=== PATIENT | male | born 1960 ===

== ENCOUNTER 2018-12-30 23:53 | Observation (INO) | payer BC ==
--- NOTE | 2018-12-31 00:51 | ED PDOC ---
HPI: Chest Pain Time Seen by Provider: 12/31/18 00:09 Chief Complaint (Nursing): Chest Pain Chief Complaint (Provider): Chest Pain History Per: Patient History/Exam Limitations: no limitations Onset/Duration Of Symptoms: Hrs (x 1 hour waiter/waitress captain) Current Symptoms Are (Timing): Still Present Quality: "Pain", Other (discomfort) Associated Symptoms: Diaphoresis Additional Complaint(s): 58 year old male with no significant medical history presents to the ED for evaluation of chest discomfort that began 1 hour prior to arrival associated with diaphoresis and left upper back pain. Patient reports he was watching television when the discomfort began, lasting a few seconds before resolving and then returning again. He has never experienced this discomfort before. Currently, he denies complaints of chest pain and is just reporting a headache. Patient offers no other complaints. PMD: none provided Past Medical History Reviewed: Historical Data, Nursing Documentation, Vital Signs Vital Signs: Last Vital Signs Temp 98.8 F 12/31/18 00:07 Pulse 40 L 12/31/18 00:07 Resp 19 12/31/18 00:07 BP 160/85 H 12/31/18 00:07 Pulse Ox 97 12/31/18 00:07 - Medical History PMH: No Chronic Diseases - Surgical History Surgical History: No Surg Hx - Family History Family History: States: No Known Family Hx - Social History Current smoker - smoking cessation education provided: No Alcohol: Occasional Drugs: Denies - Home Medications Home Medications: Ambulatory Orders Medication Instructions Recorded No Known Home Med 12/31/18 - Allergies Allergies/Adverse Reactions: Allergies Allergy/AdvReac Type Severity Reaction Status Date / Time No Known Allergies Allergy Verified 12/31/18 00:09 Review of Systems ROS Statement: Except As Marked, All Systems Reviewed And Found Negative Constitutional: Positive for: Sweats Cardiovascular: Positive for: Chest Pain Musculoskeletal: Positive for: Back Pain Physical Exam - Reviewed Nursing Documentation Reviewed: Yes Vital Signs Reviewed: Yes - Physical Exam Appears: Positive for: Non-toxic, No Acute Distress Head Exam: Positive for: ATRAUMATIC, NORMAL INSPECTION, NORMOCEPHALIC Skin: Positive for: Normal Color, Warm, Dry Eye Exam: Positive for: EOMI, Normal appearance, PERRL Neck: Positive for: Normal, Painless ROM, Supple Cardiovascular/Chest: Positive for: Regular Rate, Rhythm. Negative for: Murmur Respiratory: Positive for: Normal Breath Sounds. Negative for: Wheezing, Respiratory Distress Gastrointestinal/Abdominal: Positive for: Normal Exam, Soft. Negative for: Tenderness Back: Positive for: Normal Inspection. Negative for: L CVA Tenderness, R CVA Tenderness Extremity: Positive for: Normal ROM (x 4). Negative for: Deformity Neurological/Psych: Positive for: Awake, Alert, Normal Tone, Oriented (x 3). Negative for: Motor/Sensory Deficits - Laboratory Results Result Diagrams: 12/31/18 00:52 12/31/18 00:52 - ECG ECG: Positive for: Interpreted By Me, Viewed By Me ECG Rhythm: Positive for: Sinus Rhythm Rate: 43 O2 Sat by Pulse Oximetry: 97 (RA) Pulse Ox Interpretation: Normal Medical Decision Making Medical Decision Makin:25 Impression: chest discomfort Initial Plan: --CBC --CMP --Chest x-ray --Troponin 02:34 Patient will be admitted to Dr. Tejeda (aw[facility]E) in obs/tele for further evaluation of chest pain. 162 mg of aspirin given as a precaution. Patient with stable vitals at this time. pt will need cardiac monitoring to rule out CAD, to rule out malignant arrythmia. also placed consult for caridology pancake professional as per dr tejeda request Scribe Attestation: Documented by Padmini Adam, acting as a scribe for Wing Fairchild MD Provider Scribe Attestation: All medical record entries made by the Scribe were at my direction and personally dictated by me. I have reviewed the chart and agree that the record accurately reflects my personal performance of the history, physical exam, medical decision making, and the department course for this patient. I have also personally directed, reviewed, and agree with the discharge instructions and disposition Disposition - Clinical Impression Clinical Impression: Chest pain - Patient ED Disposition Is Patient to be Admitted: Yes Counseled Patient/Family Regarding: Studies Performed, Diagnosis - Disposition Disposition Time: 02:35 Condition: FAIR - Pt Status Changed To: Hospital Disposition Of: Observation
[2018-12-31 01:10] LABS: BASO # 0.1 K/uL (0.0-0.2); BASO % 0.8 % (0.0-2.0); EOS # 0.3 K/uL (0.0-0.7); EOS % 2.4 % (0.0-4.0); LYMPH # 1.2 K/uL (1.0-4.3); LYMPH % 10.5 % (20.0-40.0); MEAN CELL VOLUME 93.2 fl (80.0-94.0); MEAN CORPUSCULAR HEMOGLOBIN 31.2 pg (27.0-31.0); MEAN CORPUSCULAR HGB CONC 33.5 g/dL (33.0-37.0); MEAN PLATELET VOLUME 7.8 fl (7.2-11.7); MONO # 0.4 K/uL (0.0-0.8); MONO % 3.6 % (0.0-10.0); NEUT # 9.4 K/uL (1.8-7.0); NEUT % 82.7 % (50.0-75.0); NRBC % 0.1 % (0.0-0.0); RBC 5.13 Mil/uL (4.40-5.90); RED CELL DISTRIBUTION WIDTH 14.4 % (11.5-14.5); WHITE BLOOD COUNT 11.4 K/uL (4.8-10.8)
[2018-12-31 01:20] LABS: ALB/GLOB RATIO 1.2 (1.0-2.1); ALBUMIN 3.9 g/dL (3.5-5.0); ALT/SGPT 38 U/L (21-72); AST/SGOT 29 U/L (17-59); BLOOD UREA NITROGEN 17 mg/dl (9-20); CALCIUM 8.9 mg/dL (8.4-10.2); GFR NON-AFRICAN AMERICAN > 60
[2018-12-31 04:06] VITALS: RESP 20; O2SAT 97
[2018-12-31 06:32] LABS: HEMOGLOBIN 16.4 g/dL (12.0-18.0); MEAN CELL VOLUME 93.9 fl (80.0-94.0); MEAN CORPUSCULAR HEMOGLOBIN 32.1 pg (27.0-31.0); MEAN CORPUSCULAR HGB CONC 34.2 g/dL (33.0-37.0); RBC 5.12 Mil/uL (4.40-5.90); RED CELL DISTRIBUTION WIDTH 14.5 % (11.5-14.5); WHITE BLOOD COUNT 10.2 K/uL (4.8-10.8)
--- NOTE | 2018-12-31 08:41 | RAD ---
Date of service: 12/31/2018 HISTORY: cp COMPARISON: Chest radiographs 07/07/2015. TECHNIQUE: Chest PA and lateral views FINDINGS: LUNGS: No acute infiltrates bilaterally. Linear atelectasis or fibrosis identified at the left base in the interval. PLEURA: No significant pleural effusion identified. No pneumothorax apparent. CARDIOVASCULAR: No aortic atherosclerotic calcification present. Normal cardiac size. No pulmonary vascular congestion. OSSEOUS STRUCTURES: No significant abnormalities. VISUALIZED UPPER ABDOMEN: Normal. OTHER FINDINGS: None. IMPRESSION: Limited interval left basilar linear atelectasis or fibrosis. Examination otherwise unremarkable in the interval bilaterally.
[2018-12-31 08:43] VITALS: BP 152/84; PULSE 51; TEMP 97.7
[2018-12-31] MEDS ORDERED: Enoxaparin 40 mg Syringe SC SCH (09:00)
--- NOTE | 2018-12-31 09:56 | CP.PCM.CON ---
History of Present Illness - History of Present Illness History of Present Illness: 58-year-old extremely active man came to the emergency room after experiencing a momentary chest discomfort accompanied by a feeling of perspiration and ache in the left infrascapular area. The whole epi sode passed within minutes, occurred at rest and was gone by the time he came to the emergency room. The patient is extremely active and plays basketball, goes to the gym and lifts weights and has not experienced any chest discomfort during the strenuous physical activities. He is not a smoker on hypertensive or diabetic and has taken a statin for couple of years at his doctor's recommendation. There is no family history of vascular disease. Physical examination shows a young man who is alert awake coherent afebrile and lying virtually flat in bed and can carry on a conversation. His respiratory rate was 14 breaths/min and his heart rate was 56 bpm and regular. His blood pressure was 116/74 mmHg. His jugular venous pressure was not elevated and there was no edema over his lower extremities. His pedal pulses were well felt and there were no carotid bruits. His extremities were warm and nailbeds were pink. There was no central or peripheral cyanosis. There was no tenderness in the precordial area. The apex was not palpable. The first and second heart sounds were normal. There was no murmur or gallop. There were no rales. His abdomen was soft and liver and spleen are not palpable. His electrocardiogram taken in the emergency room showed sinus rhythm with a normal EKG pattern. Review of his chart reveals a cardiogram taken in June 2015 with precisely the same findings. 2 sets of cardiac enzymes were negative for any evidence of myocyte injury. Rest of his labs were noted. Impression: Atypical chest pain with no evidence of acute coronary syndrome. The patient may be allowed to return home and be treated as an outpatient. I have reassured the patient and instructed him to continue his vigorous physical activities. Past Patient History - Past Medical History & Family History Past Medical History?: No - Past Social History Alcohol: Occasional Drugs: Denies - CARDIAC Hx Cardiac Disorders: No - PULMONARY Hx Respiratory Disorders: No - NEUROLOGICAL Hx Neurological Disorder: No - HEENT Hx HEENT Problems: No - RENAL Hx Chronic Kidney Disease: No - ENDOCRINE/METABOLIC Hx Endocrine Disorders: No - HEMATOLOGICAL/ONCOLOGICAL Hx Blood Disorders: No Hx AIDS: No Hx Human Immunodeficiency Virus (HIV): No - INTEGUMENTARY Hx Dermatological Problems: No - MUSCULOSKELETAL/RHEUMATOLOGICAL Hx Musculoskeletal Disorders: No Hx Falls: No - GASTROINTESTINAL Hx Gastrointestinal Disorders: No - GENITOURINARY/GYNECOLOGICAL Hx Genitourinary Disorders: No - PSYCHIATRIC Hx Psychophysiologic Disorder: No Hx Substance Use: No - SURGICAL HISTORY Hx Surgeries: Yes Other/Comment: Left knee and right foot - ANESTHESIA Hx Anesthesia: Yes Hx Anesthesia Reactions: No Meds Allergies/Adverse Reactions: Allergies Allergy/AdvReac Type Severity Reaction Status Date / Time No Known Allergies Allergy Verified 12/31/18 00:09 Results - Vital Signs Recent Vital Signs: Last Vital Signs Temp 97.7 F 12/31/18 08:42 Pulse 51 L 12/31/18 08:42 Resp 20 12/31/18 08:42 BP 152/84 H 12/31/18 08:42 Pulse Ox 97 12/31/18 08:42 - Labs Result Diagrams: 12/31/18 06:27 12/31/18 00:52 Labs: Laboratory Results - last 24 hr 12/31/18 12/31/18 12/31/18 00:52 00:52 06:27 WBC 11.4 H D 10.2 RBC 5.13 5.12 Hgb 16.0 16.4 Hct 47.8 48.1 MCV 93.2 D 93.9 MCH 31.2 H 32.1 H MCHC 33.5 34.2 RDW 14.4 14.5 Plt Count 460 H D 458 H MPV 7.8 Neut % (Auto) 82.7 H Lymph % (Auto) 10.5 L Tyler % (Auto) 3.6 Eos % (Auto) 2.4 Baso % (Auto) 0.8 Neut # (Auto) 9.4 H Lymph # (Auto) 1.2 Tyler # (Auto) 0.4 Eos # (Auto) 0.3 Baso # (Auto) 0.1 Sodium 139 Potassium 3.5 L Chloride 103 Carbon Dioxide 29 Anion Gap 11 BUN 17 Creatinine 0.8 Est GFR ( Amer) > 60 Est GFR (Non-Af Amer) > 60 Random Glucose 99 Calcium 8.9 Total Bilirubin 0.3 AST 29 ALT 38 Alkaline Phosphatase 85 Troponin I < 0.0120 Total Protein 7.0 Albumin 3.9 Globulin 3.1 Albumin/Globulin Ratio 1.2 Vitamin B12 Thyroxine (T4) TSH 3rd Generation 12/31/18 06:27 WBC RBC Hgb Hct MCV MCH MCHC RDW Plt Count MPV Neut % (Auto) Lymph % (Auto) Tyler % (Auto) Eos % (Auto) Baso % (Auto) Neut # (Auto) Lymph # (Auto) Tyler # (Auto) Eos # (Auto) Baso # (Auto) Sodium Potassium Chloride Carbon Dioxide Anion Gap BUN Creatinine Est GFR ( Amer) Est GFR (Non-Af Amer) Random Glucose Calcium Total Bilirubin AST ALT Alkaline Phosphatase Troponin I < 0.0120 Total Protein Albumin Globulin Albumin/Globulin Ratio Vitamin B12 516 Thyroxine (T4) 5.88 TSH 3rd Generation 4.31
--- NOTE | 2018-12-31 14:09 | HP ---
CHIEF COMPLAINT: Chest pain. HISTORY OF PRESENT ILLNESS: This is a 58-year-old male, who is very active and also does lot of physical activity and exercise, who is having chest pain, so the patient was brought in to emergency room and was admitted for further management. The patient had minimal chest pain, which was very sharp and resolved spontaneously, also associated with scapular pain. The patient never had similar episode in the past. REVIEW OF SYSTEMS: Positive for chest pain. Review of systems; otherwise is negative for headache, dizziness, syncope, loss of consciousness, nausea, vomiting, diarrhea, constipation, any new joint or extremity pain. Review of systems is otherwise unremarkable. PAST MEDICAL HISTORY: Unremarkable. PAST SURGICAL HISTORY: Unremarkable. PERSONAL HISTORY: Significant for social drinking, but no alcohol or substance abuse. MEDICATIONS: The patient is not on any medication. ALLERGIES: THE PATIENT IS NOT ALLERGIC TO ANY MEDICATION. FAMILY HISTORY: Noncontributory. PHYSICAL EXAMINATION: GENERAL: Well-nourished 58-year-old male, in no acute distress. VITAL SIGNS: Temperature afebrile, pulse 88, respirations 18, blood pressure 136/76. HEENT: Pupils reacting to light. No JVD. No thyromegaly. No lymphadenopathy. No nystagmus. Normocephalic and atraumatic skull. The patient is wearing glasses. HEART: S1 and S2. Normal and regular. No significant murmur, gallop or rub is heard. LUNGS: Shows good bilateral air exchange. No rales or rhonchi. ABDOMEN: Soft and nontender. No organomegaly. No fluid. Bowel sounds are plus and normal. EXTREMITIES: No edema. No calf swelling. No tenderness. No acute ischemia. CENTRAL NERVOUS SYSTEM: Essentially unchanged. DIAGNOSTIC DATA: Available diagnostic data reviewed. EKG showed normal sinus rhythm. Chest x-ray is essentially clear. Available blood test were all reviewed. WBC 10.3, hemoglobin 16.4, hematocrit 48.1, platelets 458. SMA-12 is essentially unremarkable. Potassium 3.5. Cardiac profiles, two sets were negative. ADMITTING IMPRESSION: Atypical chest pain. PLAN: Plan as ordered. Case and plan discussed with the patient. Leonid Tejeda MD
== END 2018-12-31 13:10 | disposition home or self-care (01) ==
LOC: H.ER 23:53 → H.ERHOLD 12-31 02:35 → H.TEL 12-31 03:45
PROVIDERS: ADMIT Internal Medicine; ATTEND Internal Medicine
DX: R07.89 Other chest pain (principal)
CPT/HCPCS: 36415; 71046; 80053; 82607; 84436; 84443; 84484; 85025; 85027; 99283; G0378